=== PATIENT | female | born 1965 | race Caucasian/White ===

== ENCOUNTER 2019-03-01 08:37 | Day surgery (SDC) | payer OTHER ==
[2019-03-01] VITALS (18 sets, daily range): BP systolic 100–141; BP diastolic 54–73; PULSE 71–83; RESP 10–20; Ht 154.9 cm; Wt 64.6 kg
[~2019-03-01] VITALS: Ht 154.9 cm; Wt 64.6 kg
[~2019-03-01 08:37] MED LIST: SEVOFLURANE 15 MIN ONE
[2019-03-01] MEDS ORDERED: HYDR25TA6 PO (09:48)
[2019-03-01] MEDS ORDERED: AMLO-147 PO (09:48)
[2019-03-01] MEDS ORDERED: ATOR10TA65 PO (09:48)
[2019-03-01] MEDS ORDERED: LOSA25TA12 PO (09:48)
[2019-03-01] MEDS ORDERED: HYDR-842 ORAL (09:50)
--- NOTE | 2019-03-01 10:47 | PREAC ---
Date/Time of Note Date/Time of Note DATE: 03/01/19 TIME: 10:46 Anesthesia Eval and Record Evaluation Time Pre-Procedure Interview DATE: 03/01/19 TIME: 10:46 Age 53 Sex female NPO: 8 hrs Preoperative diagnosis cholelithiasis Planned procedure laparoscopic cholecystectomy Past Medical History Past Medical History: Includes Cardio: HTN, Dyslipidemia Endo: Diabetes Surgery & Anesthesia Issues No known issue Meds Anticoagulation: No Beta Verena within 24 hr: No Reason Beta Verena not given: Pt. not on B-Verena Reported Medications Hydroxyzine Hcl* (Atarax*) 25 Mg Tab, 1 TAB ORAL TID PRN for ANXIETY 03/01/19 Hydrochlorothiazide* (Hydrochlorothiazide*) 25 Mg Tab, 25 MG PO DAILY, #30 TAB 03/01/19 Amlodipine Besylate* (Amlodipine Besylate*) 10 Mg Tablet, 10 MG PO DAILY, #30 TAB 03/01/19 Losartan Potassium* (Losartan Potassium*) 25 Mg Tablet, 25 MG PO DAILY, TAB 03/01/19 Atorvastatin (Atorvastatin) 10 Mg Tablet, 10 MG PO QHS, #30 TAB 03/01/19 Current Medications Cefazolin Sodium/ Dextrose 50 ml @ 100 mls/hr PRE-OP ONCE IVPB ; Start 03/01/19 at 11:00; Stop 03/01/19 at 11:29 Sodium Chloride 1,000 ml @ 75 mls/hr [id number] IV Last administered on 03/01/19at 09:32; Admin Dose 75 MLS/HR; Start 03/01/19 at 11:00; Stop 03/02/19 at 00:19 Meds reviewed: Yes Allergies Coded Allergies: No Known Drug Allergies (Verified Allergy, Unknown, 03/01/19) Allergies Reviewed: Yes Labs/Studies Labs Reviewed: Reviewed by anesthesiologist test: N/A Pre-procedure Exam Last vitals Vital Signs Date Temp Pulse Resp B/P (MAP) Pulse Ox O2 O2 Flow FiO2 Time Delivery Rate 03/01/19 98.2 71 16 141/73 99 Room Air 09:27 (95) Airway: Adequate mouth opening, Adequate thyromental dist Mallampati: Mallampati II Teeth: Normal Lung: Normal Heart: Normal ASA Physical Status ASA physical status: 2 Emergency: None Planned Anesthetic General/MAC: ETT Nerve block: TAP (bilateral) Planned Pain Management Single shot nerve block, Parenteral pain med Pre-operative Attestations Prior to commencing anesthesia and surgery, the patient was re-evaluated, there was verification of: *The patient's identity *The results of appropriate recent lab work and preoperative vital signs *The above evaluation not changing prior to induction *Anesthetic plan, risk benefits, alternative and complications discussed with patient/family; questions answered; patient/family understands, accepts and wishes to proceed. Field Mechanic/Site Lead used DIEGO BERNARD MD Mar 01, 2019 10:47
[2019-03-01] MEDS ORDERED: ONDANSETRON 4 MG INJ IV PRN (11:00)
[2019-03-01] MEDS ORDERED: CEFAZOLIN 2 GM/50 ML (PMX) 50 ML IVPB ONE (11:00)
[2019-03-01] MEDS ORDERED: PROCHLORPERAZINE 10 MG INJ IV PRN (11:00)
[2019-03-01] MEDS ORDERED: FENTAnyl 50 MCG/ML VIAL IV PRN (11:00)
[2019-03-01] MEDS ORDERED: OXYCODONE/ACETAMINOPHEN (5/325) TAB PO PRN (11:00)
[2019-03-01] MEDS ORDERED: DIPHENHYDRAMINE 50 MG INJ IV PRN (11:00)
[2019-03-01] MEDS ORDERED: SOD CHLORIDE 0.9% 1,000 ML IV SCH (11:00)
[2019-03-01] MEDS ORDERED: HYDROmorphONE 1 MG/5 ML IV SYRINGE IV PRN ×2 (11:00)
[2019-03-01] MEDS ORDERED: MEPERIDINE 25 MG INJ IV PRN (11:00)
[2019-03-01] MEDS ORDERED: MIDAZOLAM 1 MG/ML 2 ML INJ ONE (11:02)
[2019-03-01] MEDS ORDERED: LIDOCAINE 2% (SDV) 5 ML INJ ONE (11:02)
[2019-03-01] MEDS ORDERED: ROCURONIUM 50 MG INJ ONE (11:02)
[2019-03-01] MEDS ORDERED: PROPOFOL 20 ML ONE (11:02)
[2019-03-01] MEDS ORDERED: FENTAnyl 50 MCG/ML VIAL ONE (11:02)
[2019-03-01] MEDS ORDERED: SUCCINYLCHOLINE CHLORIDE 100 MG/5 ML SYG IV ONE (11:02)
[2019-03-01] MEDS ORDERED: ROPIVACAINE 0.5 % 30 ML VIAL ONE (11:04)
[2019-03-01] MEDS ORDERED: FAMOTIDINE 20 MG INJ ONE (11:20)
[2019-03-01] MEDS ORDERED: DEXAMETHASONE 4 MG/ML 5 ML INJ ONE (11:20)
[2019-03-01] MEDS ORDERED: ONDANSETRON 4 MG INJ ONE (11:20)
[2019-03-01] MEDS ORDERED: CEFAZOLIN 1 GM INJ ONE (11:27)
[2019-03-01] MEDS ORDERED: HYDROmorphONE 2 MG/ML SYG ONE (11:27)
[2019-03-01] MEDS ORDERED: EPHEDrine 25 MG/5 ML SYG ONE (11:28)
[2019-03-01] MEDS ORDERED: SUGAMMADEX SODIUM 200 MG/2 ML VIAL IV ONE ×2 (11:47→11:53)
--- NOTE | 2019-03-01 11:52 | OPR ---
Date/Time of Note Date/Time of Note DATE: 03/01/19 TIME: 11:50 Operative Report Procedure Date: Mar 01, 2019 Preoperative Diagnosis symptomatic gallstones Postoperative Diagnosis same Operation/Procedure Performed laparoscopic cholecystectomy Surgeon see signature line Dramatic Critic Jaron Rodas Anesthesia Type: general Estimated Blood Loss: 0 - 10 ml's Transfusion none Specimen gallbladder Grafts/Implants none Complications none Pt Condition Post Procedure: stable Indications This is a 53-year-old female with some tender gallstones. She required surgical excision of her gallbladder. Risks alternatives benefits and percent were discussed the patient. Patient expressed understanding and consents to the operation. Procedure Description Patient is taken to the OR and prepped and draped in usual sterile fashion. Surgical time was performed. IV antibiotics given. Infraumbilical transverse incision was made with a 15 blade. Dissection with cautery was carried onto the fascia. The fascia was grasped with Melina's and divided with curved Law scissors. 0 Vicryl U stitches placed into the fascia. Acdet trocar was introduced. Pneumoperitoneum is established. Midepigastric 12 mm optical trochars placed under direct visualization. Right upper quadrant upper flank 5 mm optical trochars were placed under direct visualization. Upon initial inspection there are some adhesions to the gallbladder. These were taken down bluntly. The gallbladder was grasped the fundus and retracted in a lateral cephalad direction. [place] graspers were used to dissect out the cystic duct and cystic artery. The critical view was established. The cystic duct is divi ded to close proximally clipped distal and the division was performed lap scopic scissors. Cystic artery was divided 3 clips proximally clipped distal and the division was performed laparoscopic scissors. The gallbladder was taken of the gallbladder bed. Good hemostasis established in the gallbladder bed. The gallbladder is retrieved using Endo Catch bag. Ports removed under direct position. 0 Vicryl sutures tied down. Skin is closed and skin mera. A tap block was provided by the anesthesiologist. Dry dressings were applied. Mina CAGE Mar 01, 2019 11:52
[2019-03-01] MEDS ORDERED: HYDROCODONE/APAP (5/325) TAB PO ONE (12:00)
--- NOTE | 2019-03-01 12:34 | PAC ---
Date/Time of Note Date/Time of Note DATE: 03/01/19 TIME: 12:33 Post-Anesthesia Notes Post-Anesthesia Note Last documented vital signs Vital Signs Date Temp Pulse Resp B/P (MAP) Pulse Ox O2 O2 Flow FiO2 Time Delivery Rate 03/01/19 99.2 12:13 03/01/19 71 16 141/73 99 Room Air 09:27 (95) Activity: WNL Respiratory function: WNL Cardiovascular function: WNL Mental status: Baseline Pain reasonably controlled: Yes Hydration appropriate: Yes Nausea/Vomiting absent: Yes Comments BP: 99/60 HR: 86 RR: 15 T: 99.2 SaO2: 100% DIEGO BERNARD MD Mar 01, 2019 12:34
== END 2019-03-01 16:35 | disposition home or self-care (01) ==
LOC: SDS 08:37
PROVIDERS: ATTEND Surgery
DX: K80.10 Calculus of gallbladder with chronic cholecystitis without obstruction (principal); I10 Essential (primary) hypertension; E11.9 Type 2 diabetes mellitus without complications
CPT/HCPCS: 47562; 82962; 84703; 88304; J0690; J0780; J1100; J1170; J2250; J2405; J3010; Z7512; Z7610; J2795

== ENCOUNTER 2019-03-03 18:46 | Emergency (ER) | payer OTHER ==
[~2019-03-03] VITALS: Ht 154.9 cm; Wt 65.9 kg
[~2019-03-03 18:46] MED LIST changes: +AMLO-147 PO; +ATOR10TA65 PO; +HYDR-842 ORAL; +HYDR25TA6 PO; +LOSA25TA12 PO; -SEVOFLURANE 15 MIN ONE
[2019-03-03 18:59] VITALS: Ht 154.9 cm; Wt 65.9 kg
[2019-03-03] MEDS ORDERED: SOD CHLORIDE 0.9% 500 ML IV STA (22:18)
[2019-03-03] MEDS ORDERED: ONDANSETRON 4 MG INJ IV STA (22:18)
[2019-03-03] MEDS ORDERED: HYDROmorphONE 1 MG/ML SYG IV STA (22:18)
[2019-03-04] MEDS: HYDROmorphONE 1 MG/ML SYG IV STA ×2 (02:04→02:09)
[2019-03-04 02:06] VITALS: BP 128/78; PULSE 65; RESP 18
[2019-03-04] MEDS ORDERED: DOCU-144 PO (02:13)
--- NOTE | 2019-03-04 02:20 | ERD ---
ER Documentation Chief Complaint Chief Complaint ABD PAIN S/P SURGERY 2 DAYS AGO HPI This is a very pleasant 49-year-old female with abdominal pain status post surgery 2 days ago. Pain is mild to moderate intensity. She feels distended is not been able have a bowel movement. She is passing gas. No fevers no chills. Mild nausea but no vomiting. No other current complaints. ROS All systems reviewed and are negative except as per history of present illness. Medications Home Meds Active Scripts Docusate Sodium* (Colace*) 100 Mg Capsule, 100 MG PO TID, #30 CAP Prov:ANSHU HARRISON 03/04/19 Reported Medications Hydroxyzine Hcl* (Atarax*) 25 Mg Tab, 1 TAB ORAL TID PRN for ANXIETY 03/01/19 Hydrochlorothiazide* (Hydrochlorothiazide*) 25 Mg Tab, 25 MG PO DAILY, #30 TAB 03/01/19 Amlodipine Besylate* (Amlodipine Besylate*) 10 Mg Tablet, 10 MG PO DAILY, #30 TAB 03/01/19 Losartan Potassium* (Losartan Potassium*) 25 Mg Tablet, 25 MG PO DAILY, TAB 03/01/19 Atorvastatin (Atorvastatin) 10 Mg Tablet, 10 MG PO QHS, #30 TAB 03/01/19 Allergies Allergies: Coded Allergies: No Known Drug Allergies (Verified Allergy, Unknown, 03/01/19) PMhx/Soc History of Surgery: Yes (HYSTERECTOMY) Anesthesia Reaction: No Hx Neurological Disorder: No Hx Respiratory Disorders: No Hx Cardiac Disorders: Yes (HTN, HIGH CHOLESTEROL) Hx Psychiatric Problems: No Hx Miscellaneous Medical Probl: No Hx Alcohol Use: No Hx Substance Use: No Hx Tobacco Use: No Physical Exam Vitals Vital Signs Date Temp Pulse Resp B/P (MAP) Pulse Ox O2 O2 Flow FiO2 Time Delivery Rate 03/03/19 99.0 61 17 137/67 94 18:59 (90) Physical Exam Const: No acute distress Head: Atraumatic Eyes: Normal Conjunctiva ENT: Normal External Ears, Nose and Mouth. Neck: Full range of motion. No meningismus. Resp: Clear to auscultation bilaterally Cardio: Regular rate and rhythm, no murmurs Abd: Soft, non tender, non distended. Normal bowel sounds Skin: No petechiae or rashes Back: No midline or flank tenderness Ext: No cyanosis, or edema Neur: Awake and alert Psych: Normal Mood and Affect Result Diagram: 03/03/19224603/03/192246 Results 24 hrs Laboratory Tests Test 03/03/19 22:47 03/04/19 02:18 White Blood Count 14.3 10^3/ul Red Blood Count 4.72 10^6/ul Hemoglobin 13.5 g/dl Hematocrit 40.9 % Mean Corpuscular Volume 86.7 fl Mean Corpuscular Hemoglobin 28.6 pg Mean Corpuscular Hemoglobin Concent 33.0 g/dl Red Cell Distribution Width 12.2 % Platelet Count 190 10^3/UL Mean Platelet Volume 10.3 fl Immature Granulocytes % 0.700 % Neutrophils % 88.5 % Lymphocytes % 5.3 % Monocytes % 5.3 % Eosinophils % 0.0 % Basophils % 0.2 % Nucleated Red Blood Cells % 0.0 /100WBC Immature Granulocytes # 0.100 10^3/ul Neutrophils # 12.6 10^3/ul Lymphocytes # 0.8 10^3/ul Monocytes # 0.8 10^3/ul Eosinophils # 0.0 10^3/ul Basophils # 0.0 10^3/ul Nucleated Red Blood Cells # 0.0 10^3/ul Sodium Level 141 mmol/L Potassium Level 3.9 mmol/L Chloride Level 102 mmol/L Carbon Dioxide Level 29 mmol/L Anion Gap 10 Blood Urea Nitrogen 18 mg/dl Creatinine 0.85 mg/dl Est Glomerular Filtrat Rate mL/min > 60 mL/min Glucose Level 142 mg/dl Calcium Level 9.5 mg/dl Total Bilirubin 1.0 mg/dl Direct Bilirubin 0.00 mg/dl Indirect Bilirubin 1.0 mg/dl Aspartate Amino Transf (AST/SGOT) 59 IU/L Alanine Aminotransferase (ALT/SGPT) 183 IU/L Alkaline Phosphatase 79 IU/L Total Protein 7.7 g/dl Albumin 4.3 g/dl Globulin 3.40 g/dl Albumin/Globulin Ratio 1.26 Lipase 201 U/L Bedside Urine pH (LAB) 6.0 Bedside Urine Protein (LAB) 1+ Bedside Urine Glucose (UA) Negative Bedside Urine Ketones (LAB) 1+ Bedside Urine Blood 2+ Bedside Urine Nitrite (LAB) Negative Bedside Urine Leukocyte Esterase (L 3+ Current Medications Medications Dose Sig/Chente Start Time Status Last (Trade) Ordered Route PRN Stop Time Admin Dose Reason Admin Sodium 500 ml @ Q1H STAT 03/03/19 DC 03/03/19 Chloride 500 mls/hr IV 22:18 22:36 03/03/19 23:17 1 mg ONCE STAT 03/03/19 DC 03/03/19 Hydromorphone IV 22:18 22:36 HCl 03/03/19 22:20 (Dilaudid) Ondansetron 4 mg ONCE STAT 03/03/19 DC 03/03/19 HCl (Zofran IV 22:18 22:35 Inj) 03/03/19 22:20 1 mg ONCE STAT 03/04/19 DC Hydromorphone IV 01:31 HCl 03/04/19 01:32 (Dilaudid) Procedures/MDM Medical decision making: Patient has evidence of constipation on CT. At this point she has not normal findings postoperatively. She is tolerating p.o. Pain is resolved patient be discharged home with Colace. Patient's gastrointestinal symptoms have stabilized while in the department. No evidence of severe dehydration, sepsis, or surgical abdomen. Extensive discussion with family and patient that occult disease cannot be ruled out. 8 hour recheck for repeat abdominal exam is planned. Departure Diagnosis: Primary Impression: Abdominal pain Abdominal location: unspecified location Qualified Codes: R10.9 - Unspecified abdominal pain Condition: Stable ANSHU HARRISON Mar 04, 2019 02:20
[2019-03-04] MEDS ORDERED: ONDANSETRON (ODT) 4 MG TAB ODT STA (02:54)
[2019-03-04] MEDS ORDERED: ONDA4TAB14 PO (02:55)
[2019-03-04] MEDS ORDERED: MAGNESIUM CITRATE 300 ML BTL PO ONE (03:00)
== END 2019-03-04 08:12 | disposition home or self-care (01) ==
LOC: E/R 18:46
DX: R10.9 Unspecified abdominal pain (principal); I10 Essential (primary) hypertension
CPT/HCPCS: 36415; 74176; 80053; 81003; 83690; 85025; 96374; 96375; J1170; J2405; J7040; Z7502; Z7610